=== PATIENT | male | born 1945 | race Caucasian/White ===

== ENCOUNTER 2020-05-03 05:52 | Outpatient (CLI) | payer MEDICARE, OTHER ==
[2020-05-03 14:00] LABS: #Eosinphils 0.1 thou/uL (0.0-0.7); #Lymphocytes 1.1 thou/uL (1.20-3.40); #Monocytes 0.3 thou/uL (0.11-0.59); #Neutrophils 3.7 thou/uL (1.40-6.50); %Basophils 0.3 % (0.0-1.0); %Eosinophils 1.4 % (0.0-10.0); %Lymphocytes 20.7 % (21.0-51.0); %Monocytes 6.4 % (0.0-10.0); %Neutrophils 71.2 % (42.0-75.0); Hemoglobin 13.3 g/dL (14.0-18.0); Mean Corpuscular HGB CONC 33.9 g/dL (32.0-36.0); Mean Corpuscular Hemoglobin 33.5 pg (27.0-31.0); Mean Corpuscular Volume 98.6 fL (78.0-98.0); Mean Platelet Volume 8.1 fL (7.4-10.4); Platelet Count 240 thou/uL (130-400); RBC Distribution Width 11.6 % (11.5-14.5); Red Blood Cell (RBC) Count 3.98 mill/uL (4.70-6.10); White Blood Cell (WBC) Count 5.2 thou/uL (4.8-10.8)
[2020-05-03 14:21] LABS: ALT (SGPT) 16 U/L (8-55); AST (SGOT) 16 U/L (5-34); Albumin 4.2 g/dL (3.4-4.8); Alkaline Phosphatase 97 U/L (40-110); Anion Gap 12 mmol/L (10-20); BUN (Urea Nitrogen) 19 mg/dL (8.4-25.7); Bilirubin, Total 0.4 mg/dL (0.2-1.2); Calc. Creatinine Clearance 0 mL/min (70-130); Calcium 9.3 mg/dL (7.8-10.44); Carbon Dioxide 27 mmol/L (23-31); Chloride 105 mmol/L (98-107); Estimated GFR-MDRD 70; Glucose 103 mg/dL (83-110); Potassium 4.5 mmol/L (3.5-5.1); Protein, Total 7.2 g/dL (5.8-8.1); Sodium 139 mmol/L (136-145)
[2020-05-04 13:46] LABS: SARS-CoV-2 MS2 Positive; SARS-CoV-2 N Gene Negative; SARS-CoV-2 S Gene Negative; SARS-CoV-2 orf1ab Negative
== END 2020-05-03 05:53 | disposition home or self-care (01) ==
LOC: LABBT 05:52
PROVIDERS: ATTEND Surgery
DX: Z01.818 Encounter for other preprocedural examination (principal); Z11.59 Encounter for screening for other viral diseases; K42.9 Umbilical hernia without obstruction or gangrene; K40.90 Unilateral inguinal hernia, without obstruction or gangrene, not specified as recurrent
CPT/HCPCS: 80053; 85025; U0003; 87635

== ENCOUNTER 2020-05-06 09:16 | Day surgery (SDC) | payer MEDICARE, OTHER ==
[2020-04-30 10:02] VITALS: BMI 25.0
[2020-05-06] MEDS ORDERED: Lidocaine 1% w/Epinephrine 1:100K 20 ML VIAL ONE (10:22)
[2020-05-06] MEDS ORDERED: Bupivacaine 0.25% HCL 30 ML VIAL ONE (10:22)
[2020-05-06] MEDS ORDERED: Ketorolac Tromethamine 30 MG/ML VIAL ONE (10:24)
[2020-05-06] MEDS ORDERED: Succinylcholine Chloride 20 MG/ML 10 ml SYRINGE FS ONE (10:24)
[2020-05-06] MEDS ORDERED: Rocuronium Bromide 10 MG/ML (10ML VIAL) ONE (10:24)
[2020-05-06] MEDS ORDERED: Ondansetron PF 4 MG/2 ML Vial ONE (10:24)
[2020-05-06] MEDS ORDERED: PROPOFOL 200 MG/20 ML VIAL ONE (10:24)
[2020-05-06] MEDS ORDERED: Labetalol HCl 100 MG/20 ML VIAL ONE (10:24)
[2020-05-06] MEDS ORDERED: Lidocaine 1% PF 5 ML VIAL ONE (10:24)
[2020-05-06] MEDS ORDERED: Fentanyl 100 MCG/2 ML VIAL ONE ×3 (11:00→12:54)
[2020-05-06] MEDS ORDERED: Famotidine/PF 20 mg/2ml Vial ONE (11:01)
[2020-05-06] MEDS ORDERED: Bupivacaine PF 0.5% 30 ML VIAL ONE (11:21)
--- NOTE | 2020-05-06 18:41 | OP ---
DATE OF PROCEDURE: 05/06/2020 PREOPERATIVE DIAGNOSES: Right inguinal hernia, incisional hernia. POSTOPERATIVE DIAGNOSES: Right inguinal hernia, incisional hernia. PROCEDURES: 1. Right inguinal repair with mesh, PHS extended. 2. Incisional hernia repair with mesh, Ventralex ST 8 cm. ANESTHESIA: General. ESTIMATED BLOOD LOSS: Minimal. COMPLICATIONS: None. FINDINGS: Right inguinal hernia and incisional hernia. DESCRIPTION OF PROCEDURE: The patient was taken to the operating room, placed supine on the operating table. After general anesthetic was obtained, bilateral groins and abdomen were all prepped and draped in a sterile fashion. Oblique incision was made above the pubic tubercle on the right lower quadrant. Cautery was used to dissect down through Halima's to expose the external oblique. External oblique fibers were opened along their course to the external ring. Contents of the inguinal canal were dissected from the backside of the external oblique. Cord structures were mobilized on the pubic tubercle using a Hydes drain. Dissection superiorly and medially on the cord showed there to be an indirect hernia sac. High ligation was performed using 2-0 silk. There was also a direct defect. The direct defect is opened and dissected using a wet unraveled Ray-Lu. The PHS extended mesh was brought into the sterile field and an underlay was placed in the preperitoneal space. Its fibers laid out flat against the posterior abdominal wall. The overlay was laid in the floor of the inguinal canal. The overlay was sewn distally to the pubic tubercle, medially to the transversus arch, laterally to the shelving edge of the inguinal ligament using permanent braided suture. The extra mesh is tucked back into the external oblique proximally. The wound had been cut laterally to wrap around the cord and the two ends brought together and reapproximated at the inguinal ligament. The wound was irrigated. Local anesthetic was applied. Tunneled catheter for postop pain threaded above the incision, left on top of the mesh. The external oblique was closed using 3-0 Vicryl. Halima was closed using 3-0 Vicryl. Skin was closed using running 4-0 Monocryl and Dermabond. Next, an incision was made around the umbilicus. Cautery was used to dissect down to the hernia sac. The hernia sac dissected back to the fascia. Flaps were raised superomedially and inferolaterally on the fascial edges. Abdominal cavity is entered and all adhesions taken down. The large Ventralex ST mesh 8 cm brought in a sterile field. The underlay was placed in the abdominal cavity. Its tails laid out lateral. The skirt of the mesh was sewn via interrupted U-stitches of permanent braided suture to the edges of the fascia. The tails were cut at the level of fascia. The fascia was closed loosely over the mesh. The wound was irrigated. Local anesthetic was applied. The umbilical stalk was tacked back down using 3-0 Vicryl, the skin with running 4-0 Monocryl and Dermabond. Patient was sent to Recovery in stable condition. All instrument counts, needle counts, and lap counts are correct. Job ID: [id number]
== END 2020-05-06 16:32 | disposition home or self-care (01) ==
LOC: SDC 09:16
PROVIDERS: ATTEND Surgery
PROC: 0YU50JZ Supplement Right Inguinal Region with Synthetic Substitute, Open Approach (ICD-10-PCS; principal; 2020-05-06)
PROC: 0WUF0JZ Supplement Abdominal Wall with Synthetic Substitute, Open Approach (ICD-10-PCS; 2020-05-06)
DX: K43.2 Incisional hernia without obstruction or gangrene (principal); K40.90 Unilateral inguinal hernia, without obstruction or gangrene, not specified as recurrent; I10 Essential (primary) hypertension; Z86.010 Personal history of colon polyps; Z87.891 Personal history of nicotine dependence; Z79.84 Long term (current) use of oral hypoglycemic drugs; Z79.899 Other long term (current) drug therapy
CPT/HCPCS: 49505; 49560; 49568; C1781 ×2; J0690; J1885; J2001; J2405; J2704; J3010; S0020; S0028